=== PATIENT | male | born 1980 | race Caucasian/White ===

== ENCOUNTER 2020-05-07 07:51 | Day surgery (SDC) | payer OTHER ==
[~2020-05-07 07:51] MED LIST: CEFAZOLIN 2 GM/D5W RTU 2 GM/50 ML RTUPB IV ONE; CEFAZOLIN 2 GM/D5W RTU 2 GM/50 ML RTUPB IV PRN; DEXAMETHASONE SOD PHOSPHATE INJ 4 MG/1 ML VIAL ONE; FENTANYL CITRATE INJ/PF 100 MCG/2 ML AMPUL ONE; MIDAZOLAM 2 MG/2 ML INJ ONE; ONDANSETRON HCL INJ/PF 4 MG/2 ML SDV ONE; PROPOFOL INJ 200 MG/20 ML VIAL IV ONE; RINGERS SOLUTION,LACTATED 1,000 ML IV PRN
[2020-05-07] MEDS ORDERED: LIDOCAINE 1% INJ-PF (10 MG/ML) 30 ML SDV ONE (08:30)
[2020-05-07] MEDS ORDERED: BUPIVACAINE HCL 0.25 % INJ/PF (2.5 MG/1 ML) 30 ML VIAL ONE (09:33)
[2020-05-07] MEDS ORDERED: ONDANSETRON HCL INJ/PF 4 MG/2 ML SDV IV PRN ×2 (10:14→11:18)
[2020-05-07] MEDS ORDERED: MEPERIDINE HCL/PF INJ 25 MG/1 ML DISP.SYRIN IV PRN (10:14)
[2020-05-07] MEDS ORDERED: FENTANYL CITRATE INJ/PF 100 MCG/2 ML AMPUL IV PRN ×3 (10:14)
[2020-05-07] MEDS ORDERED: PROMETHAZINE HCL INJ 25 MG/1 ML VIAL IV PRN ×2 (10:14)
[2020-05-07] MEDS ORDERED: DIPHENHYDRAMINE HCL 50 MG/ML VIAL IV PRN (10:14)
[2020-05-07] MEDS ORDERED: MORPHINE SULFATE 10 MG/ML INJ ONE (11:03)
[2020-05-07] MEDS: MORPHINE SULFATE 10 MG/ML INJ IV PRN ×2 (11:05→11:25)
--- NOTE | 2020-05-07 11:10 | Operative Report ---
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 Patient was met in the preoperative holding area where the left lower extremity was marked. He was taken to the operative suite where he was placed supine on the operative table, all bony prominences were well-padded and general anesthesia and preoperative antibiotics were administered. A tourniquet was applied to the patient's left thigh. The left lower extremity was then prepped and draped in the usual sterile fashion. A surgical timeout was performed with the entire surgical team. After confirmation of the correct side and surgical timeout incisions were drawn out for a anterior lateral and anterior medial portal. An Esmarch was used to exsanguinate the left lower extremity and the tourniquet was elevated to 250 mmhg. Using an 11 blade an anterior lateral portal incision was made. The trocar was placed into the knee and up into the suprapatellar pouch. The trocar was removed and the camera was then placed and pictures of the suprapatellar pouch patella and trochlear groove obtained. There is no obvious pathology noted in the patellofemoral joint. There was a small plical band noted on the medial side. The medial and lateral gutter were then visualized and found to be free of debris. The camera was then placed in the medial joint space and using a 18-gauge spinal needle a medial portal was identified and using an 11 blade incision was made and a blunt trocar placed for dilation of the capsule. A probe was then placed and the medial meniscus was probed and found to have a radial tear that was flipped underneath the medial meniscus with some degenerative changes noted further posterior but no clear tear. Pictures were taken prior to debridement. Using a meniscal biter the posterior torn portion was carefully cut and using a shaver the remnants of the torn portion of meniscus were carefully removed. I noted grade II chondromalacia on the undersurface of the meniscus on the tibial plateau where the flipped portion of the meniscus was. Additionally grade 2 changes noted further anteriorly on the medial tibial plateau. Pictures were taken prior to chondroplasty. I carefully performed a chondroplasty in this area taking care not to expose subchondral bone. Only the loose fragments of the cartilage were removed to prevent further injury and possible loose bodies. I then turned my attention to the ACL which was probed and found to be stable. Then placed in the prone to lateral compartment and placing the leg in a [id number] position the camera and probe were placed into the lateral joint space. The lateral meniscus was probed and found to be stable and without pathology. There was a small piece of soft cartilage noted on the lateral femoral condyle and a picture was taken. No chondroplasty was performed as this was a small portion on the nonweightbearing surface of the lateral femoral condyle. Next the camera was placed back up into the suprapatellar pouch and any further debris was cleared. I turned my attention to the medial plical band and carefully shaved away the tissue until there was no contact with the medial femoral condyle. Pictures were taken pre-and post debridement. There was minor chondral abrasion from the plical band with no clear inflammatory reaction. Next, the instrument and camera were removed after suctioning out the remaining fluid in the knee. 3-0 Monocryl was used to close the anterior lateral and anterior medial portal sites in subcuticular fashion. 0.50% percent Marcaine without epinephrine was then injected around the portal sites and the remaining 20 cc of Marcaine was injected intra-articularly. Mastisol and Steri-Strips were used over the incisions and a sterile dressing of 4 x 4's, sterile web roll and an ABD and Celestino wrap were applied. There were no complications during the procedure. The patient tolerated procedure well. He was awoken from anesthesia and taken to the PACU in stable condition. Postoperative instructions: 1) patient is weightbearing as tolerated and range of motion as tolerated. 2) patient will follow-up for his first post op appointment in 10 to 14 days. He will begin physical therapy prior to this appointment for range of motion and early mobilization and strengthening. 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
[2020-05-07] MEDS ORDERED: ACETAMINOPHEN 325 MG TABLET PO PRN (11:18)
[2020-05-07] MEDS ORDERED: KETOROLAC TROMETHAMINE INJ/PF 30 MG/1 ML SDV IV PRN (11:19)
[2020-05-07] MEDS ORDERED: KETOROLAC TROMETHAMINE INJ/PF 30 MG/1 ML SDV ONE (11:32)
[2020-05-07 13:16] VITALS: BP 107/62
[2020-05-07] MEDS ORDERED: SUCCINYLCHOLINE CHLORIDE INJ 200 MG/10 ML VIAL ONE (13:48)
== END 2020-05-07 13:10 | disposition home or self-care (01) ==
LOC: OROUT 07:51
PROVIDERS: ATTEND Orthopaedic Surgery
DX: S83.242A Other tear of medial meniscus, current injury, left knee, initial encounter (principal); X58.XXXA Exposure to other specified factors, initial encounter; Y93.67 Activity, basketball; M67.52 Plica syndrome, left knee; M94.262 Chondromalacia, left knee; Z98.1 Arthrodesis status; Z03.818 Encounter for observation for suspected exposure to other biological agents ruled out
CPT/HCPCS: 87635; 01400; 29881; 29875; J2250; J1100; J3010; J1885; J2270; J0330; J2405; J2704; J0690; C9803; 1400; J3490